=== PATIENT | female | born 1995 | race African-American/Black ===

== ENCOUNTER 2017-06-10 18:18 | Emergency (ER) | payer MEDICAID ==
[2017-06-10 18:24] VITALS: TEMP 98.1
[2017-06-10] MEDS ORDERED: ONDANSETRON 4 MG/2 ML VIAL IVP ONE (18:44)
--- NOTE | 2017-06-10 18:50 | EDPHY ---
H & P Stated Complaint: R flank/abd pain since this am;sent from [facility] for eval poss kidney stone - Personal History LMP (Females 10-55): 1-7 Days Ago Current Tetanus Diphtheria and Acellular Pertussis (TDAP): Yes - Medical/Surgical History Other PMH: kidney stones - Social History Smoking Status: Never smoked Time Seen by Provider: 06/10/17 18:38 HPI/ROS: CHIEF COMPLAINT: Right flank pain since this morning HISTORY OF PRESENT ILLNESS: 21-year-old female history of nephrolithiasis complaining of right flank pain radiating to her right abdomen since this morning. Was evaluated at [facility] and referred to the ER for evaluation possible nephrolithiasis. She denies antecedent illness or urinary complaints such as dysuria hematuria increased frequency. No current vaginal bleeding or discharge. Last menstrual period 1 week ago. No trauma. No fever or chills. No chest pain. REVIEW OF SYSTEMS: A ten point review of systems was performed and is negative with the exception of the items mentioned in the HPI PAST MEDICAL & SURGICAL HISTORY: Prior history of nephrolithiasis with spontaneous passage. SOCIAL HISTORY: Nonsmoker, [employer] student PHYSICAL EXAM (Prior to examination, patient consented to physical exam, hands were washed and my usual and customary physical exam procedures followed) 1) GENERAL: Well-developed, well-nourished, alert and oriented. Appears nontoxic 2) HEAD: Normocephalic, atraumatic 3) HEENT: Pupils equal, round, reactive to light bilaterally. Sclera anicteric. 4) NECK: Full range of motion, no meningeal signs. 5) LUNGS: Clear auscultation bilaterally, no wheezes, no rhonchi, no retractions. 6) HEART: Regular rate and rhythm, no murmur, no heave, no gallop. 7) ABDOMEN: No guarding, no rebound, no focal tenderness, negative McBurney's, negative Gary's, negative Rovsing's, negative peritoneal sign, 8) MUSCULOSKELETAL: Moving all extremities, no focal areas of tenderness, no obvious trauma. No peripheral edema or discoloration. 9) BACK: Positive right CVA tenderness, no midline vertebral tenderness, no fluctuance, no step-off, no obvious trauma, no visual or palpable abnormality. 10) SKIN: No rash, no petechiae. 11) Psychiatric: Patient is oriented X 3, there is no agitation. DIFFERENTIAL DIAGNOSIS: In no particular order including but not limited to nephrolithiasis, pyelonephritis, perinephric abscess (Adriana Lozano) Constitutional: Initial Vital Signs Temperature (C) 36.7 C 06/10/17 18:19 Heart Rate 96 06/10/17 18:19 Respiratory Rate 18 06/10/17 18:19 Blood Pressure 165/85 H 06/10/17 18:19 O2 Sat (%) 96 06/10/17 18:19 O2 Delivery Mode Room Air Allergies/Adverse Reactions: No Known Allergies Allergy (Unverified 06/10/17 18:24) Home Medications: Medication Instructions Recorded Cephalexin [Keflex] 500 mg PO TID 7 Days cap 06/10/17 Hydrocodone/APAP 5/325 [[place] 1 tab PO Q6 PRN #10 tab 06/10/17 5/325 (RX)] Tamsulosin HCl [Flomax] 0.4 mg PO DAILY #7 cap 06/10/17 Medical Decision Making - Diagnostics Imaging: Discussed imaging studies w/ call out operator Radiologist, I viewed and interpreted images myself - Diagnostics Imaging Results: Imaging Impressions Abdomen/Pelvis CT 06/10/17 18:46 Impression: 1. 5 mm distal right ureteral calculus, at the ureterovesical junction, results in mild hydronephrosis and hydroureter. 2. Bilateral nephrolithiasis. 3. Normal appendix and bowel pattern. Findings discussed with Emergency Department physicianAdriana PA-C on 06/10/2017, 19:42. Attention: This CT examination is specifically designed to evaluate patients who are clinically suspected of having acute obstructive uropathy. This examination does not use radiographic contrast, and as such, provides only a limited evaluation of the abdomen, pelvis and retroperitoneum. If there is further clinical suspicion for pathological conditions other than obstructive uropathy, a complete CT evaluation of the abdomen and pelvis utilizing intravenous, oral, and rectal contrast should be considered. ED Course/Re-evaluation: 6:48 p.m.: She is requesting small dose of analgesia. Plan will be diagnostic studies, CT imaging. Care of patient under supervision of secondary supervising physician Dr Armstrong with whom I discussed care. 9:41 p.m.: Phone consultation with Dr. Ephraim Cornejo urology regarding the patient's nephrolithiasis, pyuria and bacteriuria. He agrees with plan of oral antibiotics, follow up in office. The patient's pain is controlled. 9:50 p.m.: Re-evaluation, patient feels comfortable being discharged. She is given the name of Dr. Ephraim Cornejo Urology for follow-up. (Adriana Lozano) Other Provider: The patient was evaluated and managed by the Physician Account Strategist. I discussed the patient's presentation and course with the midlevel provider with them and agree with the evaluation. My co-signature indicates that I have reviewed this chart and I agree with the findings and plan of care as documented. I am the secondary supervising physician. (Shanna Armstrong) - Data Points Laboratory Results: Laboratory Results 06/10/17 18:40 06/10/17 18:40 06/10/17 06/10/17 06/10/17 20:50 18:40 18:40 WBC RBC Hgb Hct MCV MCH MCHC RDW Plt Count MPV Neut % (Auto) Lymph % (Auto) [place] % (Auto) Eos % (Auto) Baso % (Auto) Nucleat RBC Rel Count Absolute Neuts (auto) Absolute Lymphs (auto) Absolute Monos (auto) Absolute Eos (auto) Absolute Basos (auto) Absolute Nucleated RBC Immature Gran % Immature Gran # Sodium 144 mEq/L mEq/L (135-145) Potassium 3.3 mEq/L L mEq/L (3.5-5.2) Chloride 106 mEq/L mEq/L (97-110) Carbon Dioxide 21 mEq/l L mEq/l (22-31) Anion Gap 17 mEq/L H mEq/L (8-16) BUN 11 mg/dL mg/dL (7-23) Creatinine 0.6 mg/dL mg/dL (0.6-1.0) Estimated GFR > 60 Glucose 90 mg/dL mg/dL (70-100) Calcium 9.5 mg/dL mg/dL (8.5-10.4) Beta HCG, Qual NEGATIVE Urine Color YELLOW Urine Appearance MODERATELY TURBID Urine pH 5.0 (5.0-7.5) Ur Specific Andrew 1.027 (1.002-1.030) Urine Protein 1+ H (NEGATIVE) Urine Ketones 1+ H (NEGATIVE) Urine Blood 3+ H (NEGATIVE) Urine Nitrate NEGATIVE (NEGATIVE) Urine Bilirubin NEGATIVE (NEGATIVE) Urine Urobilinogen NEGATIVE EU EU (0.2-1.0) Ur Leukocyte Esterase TRACE H (NEGATIVE) Urine RBC 50-182 /hpf H /hpf (0-3) Urine WBC 10-15 /hpf H /hpf (0-3) Ur Epithelial Cells TRACE /lpf /lpf (NONE-1+) Urine Bacteria TRACE /hpf H /hpf (NONE SEEN) Urine Mucus 3+ /lpf H /lpf (NONE-1+) Urine Glucose NEGATIVE (NEGATIVE) 06/10/17 18:40 WBC 4.71 10^3/uL 10^3/uL (3.80-9.50) RBC 4.53 10^6/uL 10^6/uL (4.18-5.33) Hgb 12.7 g/dL g/dL (12.6-16.3) Hct 38.1 % % (38.0-47.0) MCV 84.1 fL fL (81.5-99.8) MCH 28.0 pg pg (27.9-34.1) MCHC 33.3 g/dL g/dL (32.4-36.7) RDW 12.5 % % (11.5-15.2) Plt Count 198 10^3/uL 10^3/uL (150-400) MPV 11.1 fL fL (8.7-11.7) Neut % (Auto) 67.4 % % (39.3-74.2) Lymph % (Auto) 26.3 % % (15.0-45.0) [place] % (Auto) 5.7 % % (4.5-13.0) Eos % (Auto) 0.0 % L % (0.6-7.6) Baso % (Auto) 0.4 % % (0.3-1.7) Nucleat RBC Rel Count 0.0 % % (0.0-0.2) Absolute Neuts (auto) 3.17 10^3/uL 10^3/uL (1.70-6.50) Absolute Lymphs (auto) 1.24 10^3/uL 10^3/uL (1.00-3.00) Absolute Monos (auto) 0.27 10^3/uL L 10^3/uL (0.30-0.80) Absolute Eos (auto) 0.00 10^3/uL L 10^3/uL (0.03-0.40) Absolute Basos (auto) 0.02 10^3/uL 10^3/uL (0.02-0.10) Absolute Nucleated RBC 0.00 10^3/uL 10^3/uL (0-0.01) Immature Gran % 0.2 % % (0.0-1.1) Immature Gran # 0.01 10^3/uL 10^3/uL (0.00-0.10) Sodium Potassium Chloride Carbon Dioxide Anion Gap BUN Creatinine Estimated GFR Glucose Calcium Beta HCG, Qual Urine Color Urine Appearance Urine pH Ur Specific Andrew Urine Protein Urine Ketones Urine Blood Urine Nitrate Urine Bilirubin Urine Urobilinogen Ur Leukocyte Esterase Urine RBC Urine WBC Ur Epithelial Cells Urine Bacteria Urine Mucus Urine Glucose Medications Given: Discontinued Medications Cephalexin HCl (Keflex) 500 mg PO EDNOW ONE PRN Reason: Protocol Stop: 06/10/17 21:35 Last Admin: 06/10/17 21:40 Dose: 500 mg Lidocaine HCl 50 mg/ Sodium (Chloride) 105 mls @ 600 mls/hr IV EDNOW ONE Stop: 06/10/17 20:21 Last Admin: 06/10/17 21:02 Dose: 105 mls Sodium Chloride (Ns) 1,000 mls @ 3,000 mls/hr IV EDNOW ONE Stop: 06/10/17 20:30 Last Admin: 06/10/17 19:20 Dose: 1,000 mls Ketorolac Tromethamine (Toradol) 15 mg IVP EDNOW ONE Stop: 06/10/17 20:12 Last Admin: 06/10/17 20:17 Dose: 15 mg Ondansetron HCl (Zofran) 4 mg IVP EDNOW ONE Stop: 06/10/17 18:45 Last Admin: 06/10/17 18:49 Dose: 4 mg Tamsulosin HCl (Flomax) 0.4 mg PO EDNOW ONE Stop: 06/10/17 20:13 Last Admin: 06/10/17 20:19 Dose: 0.4 mg Departure - Departure Disposition: Home, Routine, Self-Care Clinical Impression: Nephrolithiasis Condition: Good Instructions: Kidney Stones (ED) Additional Instructions: Return to the ER if you develop worsening pain, fevers, or any other symptoms that concern you Referrals: Serafin Cornejo MD [Medical Doctor] - 1-2 days without fail Stand Alone Forms: School Excuse Prescriptions: Cephalexin [Keflex] 500 mg PO TID 7 Days cap Hydrocodone/APAP 5/325 [[place] 5/325 (RX)] 1 tab PO Q6 PRN #10 tab PRN Reason: Pain, Severe Tamsulosin HCl [Flomax] 0.4 mg PO DAILY #7 cap
[2017-06-10 18:53] LABS: PLATELET COUNT 198 10^3/uL (150-400)
[2017-06-10] MEDS ORDERED: NS IV ONE (20:11)
[2017-06-10] MEDS ORDERED: KETOROLAC 15 MG/1 ML SDV IVP ONE (20:11)
[2017-06-10] MEDS ORDERED: LIDOCAINE IV ONE (20:11)
[2017-06-10] MEDS ORDERED: NS 1,000 ML IV ONE (20:11)
[2017-06-10] MEDS ORDERED: TAMSULOSIN HCL 0.4 MG CAP PO ONE (20:12)
[2017-06-10 21:05] VITALS: BP 98/64; RESP 16
[2017-06-10] MEDS ORDERED: CEPHALEXIN 500 MG CAP PO ONE (21:34)
[2017-06-10 21:42] VITALS: O2SAT 98
[2017-06-10 21:43] VITALS: PULSE 78
== END 2017-06-10 22:34 | disposition home or self-care (01) ==
DX: N20.0 Calculus of kidney (principal)
CPT/HCPCS: 96374; J1885; J2405

== ENCOUNTER 2018-02-14 06:12 | Emergency (ER) | payer SELFPAY ==
[2018-02-14] MEDS ORDERED: KETOROLAC 15 MG/1 ML SDV IVP ONE (06:37)
[2018-02-14] MEDS ORDERED: NS 1,000 ML IV ONE (06:37)
[2018-02-14] MEDS ORDERED: KETOROLAC 15 MG/1 ML SDV ONE (06:38)
--- NOTE | 2018-02-14 06:40 | EDPHY ---
H & P Stated Complaint: L flank pain xfew hours, hx kidney stnes , "really dark urine " - Personal History LMP (Females 10-55): 1-7 Days Ago Current Tetanus Diphtheria and Acellular Pertussis (TDAP): Yes - Medical/Surgical History Hx Asthma: No Hx Chronic Respiratory Disease: No Hx Diabetes: No Hx Cardiac Disease: No Hx Renal Disease: No Hx Cirrhosis: No Hx Alcoholism: No Hx HIV/AIDS: No Hx Splenectomy or Spleen Trauma: No Other PMH: kidney stones - Social History Smoking Status: Never smoked Time Seen by Provider: 02/14/18 06:33 HPI/ROS: Chief Complaint: Flank pain, history of kidney stones HPI: 22-year-old woman presenting with left flank pain which began this morning. Pain is about an 8/10. Is similar to prior kidney stones that she has been having for the last several years. Some nausea and vomiting. No diarrhea or constipation. Her last menstrual cycle ended yesterday. No fevers or chills. Some burning with urination with really dark urine. ROS: 10 systems were reviewed and were negative except those elements noted in the HPI. PMH: Kidney stones Social History: No smoking Family History: non-contributory Physical Exam: Gen: Awake, Alert, No Distress HEENT: Nose: no rhinorrhea Eyes: PERRLA, EOMI Mouth: Moist mucosa Neck: Supple, no JVD Chest: nontender, lungs clear to auscultation Heart: S1, S2 normal, no murmur Abd: Soft, non-tender, no guarding Back: Mild left CVA tenderness, no midline tenderness Ext: no edema, non-tender Skin: no rash Neuro: CN II-XII intact, Sensation grossly intact, Strength 5/5 in bilateral upper and lower extremities (Grover Anderson) Constitutional: Initial Vital Signs Temperature (C) 36.9 C 02/14/18 06:15 Heart Rate 80 02/14/18 06:15 Respiratory Rate 18 02/14/18 06:15 Blood Pressure 115/79 02/14/18 06:15 O2 Sat (%) 97 02/14/18 06:15 O2 Delivery Mode Room Air Allergies/Adverse Reactions: No Known Allergies Allergy (Unverified 02/14/18 06:15) Home Medications: Medication Instructions Recorded Cephalexin [Keflex] 500 mg PO TID 7 Days cap 06/10/17 Hydrocodone/APAP 5/325 [[place] 1 tab PO Q6 PRN #10 tab 06/10/17 5/325 (RX)] Tamsulosin HCl [Flomax] 0.4 mg PO DAILY #7 cap 06/10/17 Hydrocodone/Acetaminophen 1 - 2 each PO Q4-6PRN PRN #10 02/14/18 [Hydrocodon-Acetaminophen 5-325] tablet Tamsulosin HCl [Flomax 0.4 MG (*)] 0.4 mg PO DAILY #10 cap 02/14/18 Medical Decision Making - Diagnostics Imaging Results: Imaging Impressions Abdomen/Pelvis Ultrasound 02/14/18 06:37 Impression: 1. Moderate left hydronephrosis secondary to a proximal left ureteral calculus measuring 7 mm. 2. No right hydronephrosis or nephrolithiasis. Findings and recommendations discussed with Emergency Department physician, Dr. Kenney Armstrong, at 0805 hours, 02/14/2018. Final report concurs with initial preliminary interpretation. Ultrasound reviewed by me and discussed with shows 7 mm proximal left ureteral calculus with mild hydronephrosis (Kenney Armstrong) ED Course/Re-evaluation: Patient signed out to Dr. Armstrong pending renal ultrasound. Patient's hematuria with no pyuria. (Grover Anderson) Patient is re-evaluated by me at 8:10 a.m.. She stable. Pain is controlled. Patient and I discussed lab and imaging study results. We discussed treatment plan including criteria for return and importance of follow-up and further evaluation. She expresses understanding and agreement. She has been typically seen for her kidney stones both at [facility] and [facility] ( Kenney Armstrong) Differential Diagnosis: I considered pyelonephritis, kidney stone, (Kenney Armstrong) - Data Points Laboratory Results: Laboratory Results 02/14/18 06:30 02/14/18 06:30 02/14/18 02/14/18 02/14/18 06:30 06:30 06:30 WBC RBC Hgb Hct MCV MCH MCHC RDW Plt Count MPV Neut % (Auto) Lymph % (Auto) [place] % (Auto) Eos % (Auto) Baso % (Auto) Nucleat RBC Rel Count Absolute Neuts (auto) Absolute Lymphs (auto) Absolute Monos (auto) Absolute Eos (auto) Absolute Basos (auto) Absolute Nucleated RBC Immature Gran % Immature Gran # Sodium 140 mEq/L mEq/L (135-145) Potassium 3.7 mEq/L mEq/L (3.3-5.0) Chloride 108 mEq/L mEq/L (97-110) Carbon Dioxide 24 mEq/l mEq/l (22-31) Anion Gap 8 mEq/L mEq/L (6-14) BUN 13 mg/dL mg/dL (7-23) Creatinine 0.8 mg/dL mg/dL (0.6-1.0) Estimated GFR > 60 Glucose 93 mg/dL mg/dL (70-100) Calcium 9.3 mg/dL mg/dL (8.5-10.4) Beta HCG, Qual NEGATIVE Urine Color YELLOW Urine Appearance MODERATELY TURBID Urine pH 5.0 (5.0-7.5) Ur Specific [place] 1.028 (1.002-1.030) Urine Protein 2+ H (NEGATIVE) Urine Ketones NEGATIVE (NEGATIVE) Urine Blood 3+ H (NEGATIVE) Urine Nitrate NEGATIVE (NEGATIVE) Urine Bilirubin NEGATIVE (NEGATIVE) Urine Urobilinogen NEGATIVE EU EU (0.2-1.0) Ur Leukocyte Esterase NEGATIVE (NEGATIVE) Urine RBC 50-182 /hpf H /hpf (0-3) Urine WBC 1-3 /hpf /hpf (0-3) Ur Epithelial Cells TRACE /lpf /lpf (NONE-1+) Urine Mucus 4+ /lpf H /lpf (NONE-1+) Urine Glucose NEGATIVE (NEGATIVE) 02/14/18 06:30 WBC 3.36 10^3/uL L 10^3/uL (3.80-9.50) RBC 4.45 10^6/uL 10^6/uL (4.18-5.33) Hgb 12.3 g/dL L g/dL (12.6-16.3) Hct 36.7 % L % (38.0-47.0) MCV 82.5 fL fL (81.5-99.8) MCH 27.6 pg L pg (27.9-34.1) MCHC 33.5 g/dL g/dL (32.4-36.7) RDW 12.5 % % (11.5-15.2) Plt Count 202 10^3/uL 10^3/uL (150-400) MPV 11.2 fL fL (8.7-11.7) Neut % (Auto) 53.6 % % (39.3-74.2) Lymph % (Auto) 38.1 % % (15.0-45.0) [place] % (Auto) 6.8 % % (4.5-13.0) Eos % (Auto) 0.3 % L % (0.6-7.6) Baso % (Auto) 0.9 % % (0.3-1.7) Nucleat RBC Rel Count 0.0 % % (0.0-0.2) Absolute Neuts (auto) 1.80 10^3/uL 10^3/uL (1.70-6.50) Absolute Lymphs (auto) 1.28 10^3/uL 10^3/uL (1.00-3.00) Absolute Monos (auto) 0.23 10^3/uL L 10^3/uL (0.30-0.80) Absolute Eos (auto) 0.01 10^3/uL L 10^3/uL (0.03-0.40) Absolute Basos (auto) 0.03 10^3/uL 10^3/uL (0.02-0.10) Absolute Nucleated RBC 0.00 10^3/uL 10^3/uL (0-0.01) Immature Gran % 0.3 % % (0.0-1.1) Immature Gran # 0.01 10^3/uL 10^3/uL (0.00-0.10) Sodium Potassium Chloride Carbon Dioxide Anion Gap BUN Creatinine Estimated GFR Glucose Calcium Beta HCG, Qual Urine Color Urine Appearance Urine pH Ur Specific [place] Urine Protein Urine Ketones Urine Blood Urine Nitrate Urine Bilirubin Urine Urobilinogen Ur Leukocyte Esterase Urine RBC Urine WBC Ur Epithelial Cells Urine Mucus Urine Glucose Medications Given: Discontinued Medications Sodium Chloride (Ns) 1,000 mls @ 0 mls/hr IV ONCE ONE; Wide Open PRN Reason: Protocol Stop: 02/14/18 06:38 Last Admin: 02/14/18 06:40 Dose: 1,000 mls Ketorolac Tromethamine (Toradol) 15 mg IVP EDNOW ONE Stop: 02/14/18 06:38 Last Admin: 02/14/18 06:41 Dose: 15 mg Departure - Departure Disposition: Home, Routine, Self-Care Clinical Impression: Kidney stone Condition: Good Instructions: Kidney Stones (ED) Additional Instructions: Make sure you drink plenty of fluids. Take ibuprofen, 600 mg every 8 hr. You may take hydrocodone with acetaminophen for breakthrough severe pain. Follow up with urologist in 2-3 days for further evaluation. You may see the urologist at [facility] or I will give you the name of a local urologist here in [place]. Return to the emergency department for severe pain, uncontrolled nausea vomiting , fevers, chills, or any other concerns. Referrals: Reg Marin MD [Medical Doctor] - As per Instructions Gutierrez Orta MD [Medical Doctor] - 2-3 days without fail Stand Alone Forms: School Excuse Prescriptions: Hydrocodone/Acetaminophen [Hydrocodon-Acetaminophen 5-325] 1 - 2 each PO Q4- 6PRN PRN #10 tablet PRN Reason: Pain, Severe Tamsulosin HCl [Flomax 0.4 MG (*)] 0.4 mg PO DAILY #10 cap
[2018-02-14 06:43] LABS: PLATELET COUNT 202 10^3/uL (150-400)
[2018-02-14 08:30] VITALS: BP 121/70
== END 2018-02-14 08:30 | disposition home or self-care (01) ==
DX: N20.0 Calculus of kidney (principal)
CPT/HCPCS: 96374; J1885

== ENCOUNTER 2018-02-14 19:45 | Emergency (ER) | payer SELFPAY ==
[2018-02-14] MEDS ORDERED: NS 1,000 ML IV ONE (19:53)
--- NOTE | 2018-02-14 19:53 | EDPHY ---
H & P Time Seen by Provider: 02/14/18 19:52 HPI/ROS: CHIEF COMPLAINT: Vomiting, left flank pain HISTORY OF PRESENT ILLNESS: The patient presents to the ED with complaints of vomiting left flank pain. The patient was seen here earlier today and diagnosed with a 7 mm proximal left ureteral stone. Patient does have a history of intermittent nephrolithiasis. She reports she has never required surgery or in intervention. She believes her last kidney stone was approximately 2 years ago. The patient was discharged home with a prescription for pain medications which she did not fill. She has not had any medications today including ibuprofen or any antiemetics. REVIEW OF SYSTEMS: A comprehensive 10 point review of systems is otherwise negative aside from elements mentioned in the history of present illness. Source: Patient Exam Limitations: No limitations - Medical/Surgical History Hx Asthma: No Hx Chronic Respiratory Disease: No Hx Diabetes: No Hx Cardiac Disease: No Hx Renal Disease: No Hx Cirrhosis: No Hx Alcoholism: No Hx HIV/AIDS: No Hx Splenectomy or Spleen Trauma: No Other PMH: kidney stones - Social History Smoking Status: Never smoked - Physical Exam Exam: General Appearance: Alert, no distress Eyes: Pupils equal and round no pallor or injection ENT, Mouth: Mucous membranes moist Respiratory: There are no retractions, lungs are clear to auscultation Cardiovascular: Regular rate and rhythm Gastrointestinal: Minimal left sided abdominal tenderness Back: Left CVA tenderness Neurological: 5/5 strength all 4 extremities Skin: Warm and dry, no rashes Musculoskeletal: Neck is supple nontender Extremities: symmetrical, full range of motion Psychiatric: Patient is oriented X 3, there is no agitation Constitutional: Initial Vital Signs Temperature (C) 37.7 C 02/14/18 19:52 Heart Rate 82 02/14/18 19:52 Respiratory Rate 18 02/14/18 19:52 Blood Pressure 105/68 02/14/18 19:52 O2 Sat (%) 98 02/14/18 19:52 O2 Delivery Mode Room Air Allergies/Adverse Reactions: No Known Allergies Allergy (Unverified 02/14/18 19:51) Home Medications: Medication Instructions Recorded Cephalexin [Keflex] 500 mg PO TID 7 Days cap 06/10/17 Hydrocodone/APAP 5/325 [[place] 1 tab PO Q6 PRN #10 tab 06/10/17 5/325 (RX)] Tamsulosin HCl [Flomax] 0.4 mg PO DAILY #7 cap 06/10/17 Hydrocodone/Acetaminophen 1 - 2 each PO Q4-6PRN PRN #10 02/14/18 [Hydrocodon-Acetaminophen 5-325] tablet Ondansetron Odt [Zofran Odt] 4 mg PO Q4PRN PRN #20 tab 02/14/18 Tamsulosin HCl [Flomax 0.4 MG (*)] 0.4 mg PO DAILY #10 cap 02/14/18 Medical Decision Making ED Course/Re-evaluation: Reviewed the workup performed earlier today including the renal ultrasound which demonstrated: Ultrasound Abdomen Retroperitoneum, Complete Clinical Indications: Left abdominal/flank pain. History of kidney stones. Comparison: None. Findings: The right kidney measures 10.1 cm x 4.5 cm x 5.0 cm. The left kidney measures 11.3 cm x 5.3 cm x 6.1 cm. Moderate left hydronephrosis secondary to a 7 mm proximal left ureteral calculus with dilated left renal pelvis and calyces. No additional shadowing calculi in the left kidney. No evidence of right hydronephrosis or shadowing calculi in the right kidney. No perinephric fluid. Right renal cortical thickness 1.0 cm and left renal cortical thickness 0.8 cm. Images of the bladder demonstrate patent bilateral ureteral jets with color flow imaging. Prevoid bladder volume 2.0 cm3. No shadowing bladder calculi. Impression: 1. Moderate left hydronephrosis secondary to a proximal left ureteral calculus measuring 7 mm. 2. No right hydronephrosis or nephrolithiasis. Findings and recommendations discussed with Emergency Department physician, Dr. Kenney Armstrong, at 0805 hours, 02/14/2018. ED course: The patient presents to the ED with ongoing left renal colic having taking no medications today secondary to vomiting. She has no anti emetics at home today she took no ibuprofen. Reviewed the patient's laboratory testing and urinalysis from earlier today. The patient had an IV established. She received 30 mg of Toradol, 0.4 mg of Flomax and 4 mg of Zofran. The patient received 1 L of normal saline IV rehydration for dehydration. Re-evaluated the patient at 8:50 p.m.. She is currently pain-free. I stressed to her the importance of using anti emetics and anti-inflammatories at home. She will be discharged home with a prepack for Zofran, Percocet and advised to make sure that she is taking ibuprofen. The patient has been referred to our on -call urologist. She understands return to the ED for any unimproved symptoms or worsening condition. Differential Diagnosis: Differential diagnosis considered nephrolithiasis, ureterolithiasis, pyelonephritis - Data Points Medications Given: Discontinued Medications Sodium Chloride (Ns) 1,000 mls @ 0 mls/hr IV EDNOW ONE; Wide Open PRN Reason: Protocol Stop: 02/14/18 19:54 Last Admin: 02/14/18 20:04 Dose: 1,000 mls Ketorolac Tromethamine (Toradol) 30 mg IVP EDNOW ONE Stop: 02/14/18 20:02 Last Admin: 02/14/18 20:09 Dose: 30 mg Ondansetron HCl (Zofran) 4 mg IVP EDNOW ONE Stop: 02/14/18 20:02 Last Admin: 02/14/18 20:09 Dose: 4 mg Tamsulosin HCl (Flomax) 0.4 mg PO EDNOW ONE Stop: 02/14/18 20:02 Last Admin: 02/14/18 20:27 Dose: 0.4 mg Departure - Departure Disposition: Home, Routine, Self-Care Clinical Impression: Kidney stone Condition: Good Instructions: Kidney Stones (ED), Ondansetron (By mouth), Oxycodone/ Acetaminophen (By mouth) Additional Instructions: 1. Take Ibuprofen or Motrin 600 mg by mouth three times a day. 2. Percocet as needed for severe pain 3. Flomax as directed 4. Zofran as needed for nausea 5. Strain urine as directed 6. Return to the Emergency Department for intractable pain, fever or vomiting. 7. Followup with the urologist you have been referred to for unimproved symptoms. Referrals: Reg Marin MD [Medical Doctor] - As per Instructions
[2018-02-14] MEDS ORDERED: KETOROLAC 30 MG/1 ML SDV IVP ONE (20:01)
[2018-02-14] MEDS ORDERED: ONDANSETRON 4 MG/2 ML VIAL IVP ONE (20:01)
[2018-02-14] MEDS ORDERED: TAMSULOSIN HCL 0.4 MG CAP PO ONE (20:01)
[2018-02-14] MEDS ORDERED: OXYCODONE/APAP 5/325MG PREPACK#4 BTL TAKEHOME ONE ×2 (20:52)
[2018-02-14] MEDS ORDERED: ONDANSETRON 4MG PREPACK#2 BTL TAKEHOME ONE ×2 (20:52)
[2018-02-14 20:59] VITALS: BP 114/70
== END 2018-02-14 20:59 | disposition home or self-care (01) ==
DX: N20.0 Calculus of kidney (principal)
CPT/HCPCS: 96374; J1885; J2405

== ENCOUNTER 2018-03-07 12:27 | Emergency (ER) | payer OTHER ==
--- NOTE | 2018-03-07 12:57 | EDPHY ---
H & P Stated Complaint: L flank pain Time Seen by Provider: 03/07/18 12:57 - Personal History LMP (Females 10-55): 15-21 Days Ago Current Tetanus/Diphtheria Vaccine: Yes Current Tetanus Diphtheria and Acellular Pertussis (TDAP): Yes - Medical/Surgical History Hx Asthma: No Hx Chronic Respiratory Disease: No Hx Diabetes: No Hx Cardiac Disease: No Hx Renal Disease: No Hx Cirrhosis: No Hx Alcoholism: No Hx HIV/AIDS: No Hx Splenectomy or Spleen Trauma: No Other PMH: kidney stones - Social History Smoking Status: Never smoked Constitutional: Initial Vital Signs Temperature (C) 36.9 C 03/07/18 12:48 Heart Rate 121 H 03/07/18 12:48 Respiratory Rate 16 03/07/18 12:48 Blood Pressure 115/69 03/07/18 12:48 O2 Sat (%) 97 03/07/18 12:48 O2 Delivery Mode Room Air Allergies/Adverse Reactions: No Known Allergies Allergy (Unverified 03/07/18 12:47) Home Medications: Medication Instructions Recorded Ondansetron Odt [Zofran Odt] 4 mg PO Q4PRN PRN #20 tab 02/14/18 Tamsulosin HCl [Flomax 0.4 MG (*)] 0.4 mg PO DAILY #10 cap 02/14/18 Tamsulosin HCl [Flomax 0.4 MG (*)] 0.4 mg PO DAILY #10 cap 03/07/18 Medical Decision Making - Diagnostics Imaging Results: Imaging Impressions Abdomen/Pelvis Ultrasound 03/07/18 13:01 Impression: Approximately 5 mm stone at the left ureterovesical junction with slight increase in moderate left hydronephrosis. Findings discussed with Gordon Chiu MD 03/07/2018 at 14:17. Imaging: Discussed imaging studies w/ call center analyst Radiologist ED Course/Re-evaluation: CHIEF COMPLAINT: Flank pain, unable to get into urologist HISTORY OF PRESENT ILLNESS: The patient is a 22 y/o female with a history of kidney stones complaining of ongoing left-sided flank pain for the past month. She has been seen in our ED twice this month for the same complaint and most recent imaging on 02/14/18 showed a 7mm proximal left ureteral stone with moderate hydronephrosis. She was referred to a local urologist, but due to her insurance she needs to follow up at [facility]. She has been unable to get an appointment there. She is continuing to have intermittent left flank pain and occasional chills at night. She denies other symptoms including fever, dysuria, hematuria, polyuria, vomiting, abdominal pain, or recent trauma. She has not been taking pain medication for this, but she has used Flomax daily for the last week. She is currently relatively comfortable and is primarily seeking help arranging follow up. REVIEW OF SYSTEMS: A comprehensive 10 system review of systems is otherwise negative aside from elements mentioned in the history of present illness and medical decision making. PHYSICAL EXAM: HR, BP, O2 Sat, RR. Temp noted General Appearance: Alert, well hydrated, appropriate, and non-toxic appearing. Head: Atraumatic without scalp tenderness or obvious injury Eyes: Pupils equal, round, reactive to light and accommodation, EOMI, no trauma , no injection. Nose: Atraumatic, no rhinorrhea, clear. Throat: Mucus membranes moist. Neck: Supple, nontender, no lymphadenopathy. Respiratory: No retractions, no distress, no wheezes, and no accessory muscle use. Lungs are clear to auscultation bilaterally. Cardiovascular: Regular rate and rhythm, no murmurs, rubs, or gallops. Good capillary refill all extremities. Gastrointestinal: Abdomen is soft, nontender, non-distended, no masses, no rebound, no guarding, no peritoneal signs. Musculoskeletal: Normal active ROM of all extremities, atraumatic. Neurological: Alert, appropriate, and interactive. The patient has non-focal cranial nerves, motor, sensory, and cerebellar exam. Skin: No rashes, good turgor, no nodules on palpation. Past medical history: Kidney stones Past surgical history: Denies Family history: Noncontributory. Social history: Nonsmoker. From [place]. student. Prior medical records reviewed including ED visit 02/14/18 for flank pain. DIAGNOSTICS/PROCEDURES/CRITICAL CARE TIME: Renal US: 5mm distal left ureteral stone DIFFERENTIAL DIAGNOSIS: The differential diagnosis for the patient's flank pain included but was not limited to musculoskeletal causes, kidney stone, pyelonephritis, shingles, diverticulitis, appendicitis, and aortic aneurysm. MEDICAL DECISION MAKING: This is a normally healthy 22 y/o female with a history of kidney stones and diagnosed proximal 7mm left ureteral stone who presents with a one-month history of recurring left-sided flank pain. She has been unable to get into a urologist for follow up due to insurance issues as she has been told she needs to get a referral from a specific PCP and that the prior ED referrals are not sufficient. She does not currently have left-sided CVA tenderness and is afebrile. Plan for UA and repeat renal US. She is declining pain mediations. Plan to get case management involved to help arrange urology follow up. UA shows a small increase in RBC, no signs of infection. US shows distal 5mm stone, likely the same as seen on prior imaging. Patient will be discharged with standard care and follow up instructions including another script for Flomax. She understands she needs to see a urologist within 48-72 hours without fail. Case management has discussed how to go through this process with her. Return precautions discussed. - Data Points Laboratory Results: 03/07/18 12:55 Urine Color YELLOW Urine Appearance CLEAR Urine pH 6.0 (5.0-7.5) Ur Specific [place] 1.021 (1.002-1.030) Urine Protein NEGATIVE (NEGATIVE) Urine Ketones 1+ H (NEGATIVE) Urine Blood 1+ H (NEGATIVE) Urine Nitrate NEGATIVE (NEGATIVE) Urine Bilirubin NEGATIVE (NEGATIVE) Urine Urobilinogen NEGATIVE EU EU (0.2-1.0) Ur Leukocyte Esterase TRACE H (NEGATIVE) Urine RBC 3-5 /hpf H /hpf (0-3) Urine WBC 1-3 /hpf /hpf (0-3) Ur Epithelial Cells TRACE /lpf /lpf (NONE-1+) Urine Mucus TRACE /lpf /lpf (NONE-1+) Urine Glucose NEGATIVE (NEGATIVE) Departure - Departure Disposition: Home, Routine, Self-Care Clinical Impression: Ureteral stone with hydronephrosis Condition: Good Instructions: Tamsulosin (By mouth), Ureteral Stones (ED) Additional Instructions: 1. Use Flomax as prescribed every day until you pass stone. 2. Use ibuprofen as directed on the packaging as needed for pain over the next few days. 3. Follow up with urologist in the next 2-3 days as discussed without fail. 4. Return to the ED for any worsening of condition. Referrals: Serafin Cornejo MD [Medical Doctor] - As per Instructions Stand Alone Forms: School Excuse Prescriptions: Tamsulosin HCl [Flomax 0.4 MG (*)] 0.4 mg PO DAILY #10 cap Report Scribed for: Gordon Chiu Report Scribed by: Estephania Farley Date of Report: 03/07/18 Time of Report: 13:00
[2018-03-07 14:34] VITALS: BP 110/74
--- NOTE | 2018-03-07 16:36 | ASMTCMCOM ---
CM Note CM Note Notes: Pt presented to the ED for left flank pain. Pt has a history of kidney stones. Pt was seen for same reason 2x on 02/14/18. Pt was diagnosed with a 7mm kidney stone on 02/14 was d/c'd w/instructions to followup with a urologist and her PCP at [facility]. Pt states she was seen at [facility] Emergency Dept this past Saturday03/02/18 but was not provided a referral to a urologist. Spoke w/pt and she states she has not been able to get an appt w/a Urologist at [facility] because she was told that they would need a referral from her PCP, not the ED. Pt states she had an appt w/her PCP today at 1440 but pt states she wasn't going to be able to make it but was unable to provide an answer why. Spoke w/staff member in the specialists dept at [facility] at the [facility] (Car Runner:[phone], Appts:[phone]) and confirmed that they will accept a referral from an ED but that it may take 24-48hrs for the referral to be processed and then up to 2 weeks for the specialist clinic to accept or deny the referral. This CM relayed that pt needs to be seen within 48-72 hours; staff member recommended specifying URGENT/STAT on the referral. This CM faxed ED Report/Referral to ([phone]). The process and plan was relayed to the patient and she verbalized understanding that if she does not hear from [facility] by mid-afternoon on Saturday then she needs to call them. Pt also encouraged to schedule another appt w/her PCP. CM available for further assistance if needed. Date Signed: 03/07/2018 04:35 PM Electronically Signed By:Kennedi Kumra RN
== END 2018-03-07 14:34 | disposition home or self-care (01) ==
DX: N13.2 Hydronephrosis with renal and ureteral calculous obstruction (principal)